=== PATIENT | male | born 1995 | race Caucasian/White ===

== ENCOUNTER 2022-01-10 23:16 | Emergency (ER) | payer SELFPAY ==
[~2022-01-10] VITALS: Ht 165.1 cm; Wt 73.0 kg
[2022-01-10 23:57] VITALS: BP 136/87
[2022-01-11] MEDS ORDERED: TETANUS, DIPHTHERIA, PERTUSSIS VAC/PF 0.5ML (>10YR OLD) IM ONE (02:15)
== END 2022-01-11 02:23 | disposition home or self-care (01) ==
LOC: ER 23:16
DX: S01.01XA Laceration without foreign body of scalp, initial encounter (principal); X58.XXXA Exposure to other specified factors, initial encounter; Y93.89 Activity, other specified; Y92.89 Other specified places as the place of occurrence of the external cause; Y99.8 Other external cause status; J45.909 Unspecified asthma, uncomplicated
CPT/HCPCS: 90471; 90715; 99283